=== PATIENT | male | born 1990 | race Hispanic/Latino ===

== ENCOUNTER 2021-10-31 19:27 | Emergency (ER) | payer OTHER ==
[2021-10-31] MEDS ORDERED: Diazepam 5 MG TAB ONE (20:50)
[2021-10-31] MEDS ORDERED: Ketorolac Tromethamine 30 MG/ML VIAL ONE (20:50)
[2021-10-31] MEDS ORDERED: traMADol HCl 50 MG TAB ONE (20:51)
== END 2021-10-31 21:30 | disposition home or self-care (01) ==
LOC: CSHERS 19:27
DX: S39.012A Strain of muscle, fascia and tendon of lower back, initial encounter (principal); M62.830 Muscle spasm of back; V43.52XA Car driver injured in collision with other type car in traffic accident, initial encounter
CPT/HCPCS: 72072; 72100; 96372; J1885